=== PATIENT | female | born 1965 | race African-American/Black ===

== ENCOUNTER 2020-10-13 15:51 | Emergency (ER) | payer MEDICAID ==
[~2020-10-13] VITALS: Ht 165.1 cm; Wt 86.2 kg
[2020-10-13 16:20] VITALS: BP 177/108
== END 2020-10-13 18:30 | disposition home or self-care (01) ==
LOC: MED 15:51
DX: R60.0 Localized edema (principal); M79.601 Pain in right arm; M79.604 Pain in right leg
CPT/HCPCS: 93971; 99285

== ENCOUNTER 2021-03-07 12:21 | Inpatient (IN) | payer MEDICAID, SELFPAY ==
[~2021-03-07] VITALS: Ht 152.4 cm; Wt 70.3 kg
[2021-03-07 13:17] VITALS: BP 112/68
--- NOTE | 2021-03-07 13:46 | NUR ---
[place] yanes in [facility] - 03/07/21 at 1453 by [email or web address] PT MOVED FROM AMBULANCE 1 TO BED 11
--- NOTE | 2021-03-07 14:52 | NUR ---
1452 BIBA TO ER BED 3
--- NOTE | 2021-03-07 15:35 | NUR ---
NEON SIGN INSTALLER AT PT BEDSIDE.
[2021-03-07] MEDS ORDERED: NACL 0.9% 1,000 ML IV SCH (16:00)
[2021-03-07] MEDS ORDERED: cefTRIAXone 1,000 MG in DEXT 5% MINI-BAG PLUS 50 ML IV ONE (16:00)
[2021-03-07 17:00] LABS: BASOPHILS # (AUTO) 0.1 K/uL (0.00-0.22); BASOPHILS % (AUTO) 1.7 % (0.0-2.0); EOSINOPHILS # (AUTO) 0.3 K/uL (0-0.4); EOSINOPHILS % (AUTO) 3.2 % (0.0-4.0); HEMATOCRIT 40.4 % (36-48); HEMOGLOBIN 13.8 g/dL (12.0-16.0); LYMPHOCYTES # (AUTO) 1.1 K/uL (2.5-16.5); LYMPHOCYTES % (AUTO) 14.3 % (20.5-51.1); MEAN CORPUSCULAR HEMOGLOBIN 32 pg (27-31); MEAN CORPUSCULAR HGB CONC 34 g/dL (33-37); MEAN CORPUSCULAR VOLUME 91.9 fL (80-94); MONOCYTES # (AUTO) 0.4 K/uL (0.8-1.0); MONOCYTES % (AUTO) 4.9 % (1.7-9.3); NEUTROPHILS % (AUTO) 75.9 % (42.2-75.2); PLATELET COUNT (AUTO) 254 K/uL (140-450); RED CELL DISTRIBUTION WIDTH 14.6 % (11.6-13.7); WHITE BLOOD COUNT (AUTO) 7.9 K/uL (4.8-10.8)
[2021-03-07] MEDS ORDERED: cefTRIAXone 1,000 MG VIAL ONE (17:02)
--- NOTE | 2021-03-07 17:14 | NUR ---
COLLECTED YURY SCHWARZ, GAVE TO VICE PRESIDENT MEDICAL AFFAIRS AT PT BEDSIDE.
[2021-03-07 17:15] LABS: BILIRUBIN,URINE 1+ (NEGATIVE); BLOOD, URINE 2+ (NEGATIVE); COLOR,URINE YELLOW (YELLOW); LEUKOCYTE ESTERASE ,URINE 3+ (NEGATIVE); NITRITE, URINE NEGATIVE (NEGATIVE); PH,URINE 6.5 (5.0-9.0); UGLUCOSE NEGATIVE (NEGATIVE)
[2021-03-07 17:17] LABS: APPEARANCE,URINE CLOUDY (CLEAR)
[2021-03-07 17:18] LABS: RBC,URINE 0-5 /HPF (0-5); WBC,URINE TOO MANY TO COUNT /HPF (0-5)
[2021-03-07 17:25] LABS: ANION GAP 16.6 (8-16); CARBON DIOXIDE 25.2 mmol/L (21-32); CREATININE 0.7 mg/dL (0.6-1.3); POTASSIUM 3.8 mmol/L (3.5-5.1); TOTAL BILIRUBIN 0.6 mg/dL (0.0-1.0)
--- NOTE | 2021-03-07 18:55 | NUR ---
PT RESTING IN BED, HOB ELEVATED, VSS, WILL CONTINUE TO MONITOR.
[2021-03-07] MEDS ORDERED: LEVE750T25 PO (19:10)
[2021-03-07] MEDS ORDERED: [UNRECOGNIZED DRUG - CODE] TP (19:10)
[2021-03-07] MEDS ORDERED: LAM200 PO (19:10)
[2021-03-07] MEDS ORDERED: ZINC50TA76 PO (19:10)
[2021-03-07] MEDS ORDERED: FAMO-92 PO (19:10)
[2021-03-07] MEDS ORDERED: TYL650S RC (19:10)
[2021-03-07] MEDS ORDERED: MULT-2112 PO (19:10)
[2021-03-07] MEDS ORDERED: ASCO500T95 PO (19:10)
[2021-03-07] MEDS ORDERED: DOCU150L25 PO (19:10)
[2021-03-07] MEDS ORDERED: MIRABULK PO (19:10)
[2021-03-07] MEDS ORDERED: CALC-1646 PO (19:10)
[2021-03-07] MEDS ORDERED: LACO200T PO (19:10)
[2021-03-07] MEDS ORDERED: EPIN1KIT31 IM (19:10)
--- NOTE | 2021-03-07 19:26 | NUR ---
received report from Karol ACOSTA for continuation of care.
--- NOTE | 2021-03-07 19:26 | NUR ---
GAVE REPORT TO KARLA DUONG. TRANSFER OF CARE AT THIS TIME.
--- NOTE | 2021-03-07 20:05 | NUR ---
Angelique ACOSTA from the boarding facility calling for updates and condition of patient.
--- NOTE | 2021-03-07 23:21 | NUR ---
pericare provided for patient, placed diaper and chucks, and repositioned patient to the right side- tolerated well. emptied out levy with 1000ml taken out-- cloudy, foul odor, ree in color.
--- NOTE | 2021-03-08 02:39 | NUR ---
repositioned patient to the left side- tolerated well.
--- NOTE | 2021-03-08 06:36 | NUR ---
repositioned patient to supine- tolerated well.
--- NOTE | 2021-03-08 07:32 | NUR ---
Patient appears to be resting comfortably in bed. Vital Signs within normal limits. Respirations even and unlabored. All needs met and anticipated. Call light in reach, all safety measures in place.
--- NOTE | 2021-03-08 08:31 | NUR ---
Patient will be admitted to care of Dr Mohamud . Admited to [facility]. Will go to room 105A. Belongings list completed. Report to KARLA Carrizales.
--- NOTE | 2021-03-08 09:00 | NUR ---
PATIENT ARRIVED ON UNIT , PT CHANGED BED BATH GIVEN ONE LARGE BM AT THIS TIME , PT ORIENTED TO ROOM , HOSPITAL POLICES , REENFORCEMENT NEEDED.
[2021-03-08 12:00] VITALS: BP 108/67
--- NOTE | 2021-03-08 12:04 | NUR ---
PATIENT CHANGED AND REPOSITIONED ONE LARGE BM AT THIS TIME , BED IN LOW POSITION , CALL LIGHT WITHIN REACH , ALLS SAFETY MEASURES ARE IN PLACE.E
--- NOTE | 2021-03-08 16:25 | NUR ---
PT PROVIDED SNACK PT TOLERATED WELL. ALL SAFETY MEASURES ARE IN PLACE.
--- NOTE | 2021-03-08 16:28 | NUR ---
PATIENT HAS BEEN SCREENED AND CATEGORIZED MODERATE NUTRITION RISK. PATIENT WILL BE SEEN WITHIN 3-5 DA[address] OF ADMISSION. JAN[address]
--- NOTE | 2021-03-08 16:48 | NUR ---
DC PLANN[age] YRS OLD FEMALE PATIENT WAS ADMITTED FROM [facility] WITH A DX OF UTI AND PNA. PATIENT HAS A HX OF PID, SZ, CEREBRAL PALSY AND OSTEOPOROSIS. XRAY ABD SERIES SHOWED PNEUMONIA ON RA SATING 98%. UA 4+. ADMINISTERED IVF, IV ABX ROCEPHIN. CONSULTED WITH ID. DC PLAN TO GO HOME WHEN STABLE CM TO FOLLOW Addendum: 03/11/21 at 1118 by Catherine Verduzco RN DC PLANNING: PATIENT HAS A DC ORDER, CALLED [facility] SPOKE WITH JAKE ALEJANDRE TRANSPORT PROGRAMMER BUSINESS TIME WILL BE BETWEEN 3-3:30 PM NOTIFIED FARIDEH ACOSTA. CM TO FOLLOW
--- NOTE | 2021-03-08 19:21 | NUR ---
PATIENT ENDORSED TO PATIENT SERVICES TECHNICIAN NURSE FOR CONTINUITY OF CARE, PT RESTING IN BED , NO ACUTE DISTRESS NOTED , BREATHING IS SYMMETRICAL AND UNLABORED. PATIENT REPOSITIONED AND KEPT DRY THROUGH OUT THE SHIFT.
--- NOTE | 2021-03-08 19:23 | NUR ---
[id number] REPORT FROM AM SHIFT NURSE FOR CONTINUITY OF CARE. RR EVEN AND UNLABORED WITH EQUAL CHEST RISE. PT AWAKE , BUT APHASIC. NO ACUTE DISTRESS NOTED. ALL SAFETY MEASURES IN PLACE.
[2021-03-08 20:00] VITALS: BP 187/108
--- NOTE | 2021-03-08 21:30 | NUR ---
FREQ ROUNDS. PT TURNED AND REPOSITIONED Q2HRS. SACRUM REDDENED BUT SKIN INTACT. HANDS CONTRACTED. HAS CEREBRAL PALSY. ALL SAFETY MEASURES IN PLACE. WILL CONTINUE TO MONITOR.
--- NOTE | 2021-03-08 22:45 | NUR ---
SPOKE WITH DR. MEDEIROS INFECTIOUS DISEASES. KIANNA'S ORDERED AND CARRIED OUT.
[2021-03-08] MEDS ORDERED: PIPERACILLIN/TAZOBACTAM 4.5 GM VIAL IV ONE (23:36)
--- NOTE | 2021-03-09 | NUR ---
ZOSYN IVPB HUNG INFUDED INTO L FOOT IV 22G. PT TOLERATED PROCEDURE WELL. DID NOT TRY TO DISLODGE IVF. MOUTH CARE GIVEN. TURNED PT Q2HRS. ALL SAFETY MEASURES IN PLACE. CONTINUE TO OBSERVE.
--- NOTE | 2021-03-09 03:21 | NUR ---
FREQ ROUNDS. PT RESTING IN BED. RR EVEN AND UNLABORED WITH EQUAL CHEST RISE. ALL SAFETY MEASURES IN PLACE.
[2021-03-09 04:00] VITALS: BP 146/75
[2021-03-09] MEDS ORDERED: PIPERACILLIN/TAZOBACTAM 4.5 GM VIAL IV ONE (05:50)
--- NOTE | 2021-03-09 06:30 | NUR ---
UNABLE TO GET ZOSYN 4.5 GM IVPB TO HANG. AT 07:28 RECEIVED ZOSYN 4.5GM TO RECONSTITUTE IN DEXTROSE 5% IVPB. HUNG ABX. PT TOLERATED IT WELL; WITH OUT TRYING TO DISLODGE THE IV.
[2021-03-09] MEDS: PIPERACILLIN/TAZOBACTAM 4.5 GM in DEXTROSE 5% 100 ML IV SCH ×6 (07:00→23:47)
--- NOTE | 2021-03-09 07:30 | NUR ---
RECEIVED REPORT FROM YEAST CAKE CUTTER NURSE FOR CONTINUITY OF CARE, POC DISCUSSED. PT IS IN BED AT 45%, APHASIC, ON ROOM AIR WITH CHEST RISING AND FALLING EVEN AND UNLABORED. PT HAS A LEFT FOREARM 22G. PT HAS A HENAO IN PLACE. ALL SAFETY MEASURES IN PLACE, WILL CONTINUE TO MONITOR.
[2021-03-09 08:00] VITALS: BP 137/90
[2021-03-09] MEDS ORDERED: HYDROcodone/APAP 5/325 MG 1 TAB TAB PO PRN (09:05)
[2021-03-09] MEDS ORDERED: ONDANSETRON 4 MG/2 ML VIAL IVP PRN (09:05)
[2021-03-09] MEDS ORDERED: LORazepam 2 MG/ML VIAL IVP PRN (09:05)
[2021-03-09] MEDS ORDERED: ACETAMINOPHEN 325 MG TAB PO PRN (09:05)
--- NOTE | 2021-03-09 10:00 | NUR ---
MORNING ASSESSMENT COMPLETED ON PT, PT IS STABLE. ALL SAFETY MEASURES IN PLACE, CALL LIGHT WITHIN REACH. WILL CONTINUE TO MONITOR.
--- NOTE | 2021-03-09 11:05 | NUR ---
URINE CULTURE OBTAINED.
--- NOTE | 2021-03-09 13:24 | NUR ---
SAMANTHA MEDICATION ADMINISTERED PER MD ORDER, PT TOLERATED ADMINISTRATION. PT IV IS PATENT AND INTACT.
[2021-03-09 15:34] LABS: BASOPHILS # (AUTO) 0.1 K/uL (0.00-0.22); BASOPHILS % (AUTO) 1.6 % (0.0-2.0); EOSINOPHILS # (AUTO) 0.2 K/uL (0-0.4); HEMATOCRIT 40.5 % (36-48); HEMOGLOBIN 13.8 g/dL (12.0-16.0); LYMPHOCYTES # (AUTO) 1.1 K/uL (2.5-16.5); LYMPHOCYTES % (AUTO) 28.6 % (20.5-51.1); MEAN CORPUSCULAR HEMOGLOBIN 31 pg (27-31); MEAN CORPUSCULAR HGB CONC 34 g/dL (33-37); MEAN CORPUSCULAR VOLUME 91.7 fL (80-94); MONOCYTES # (AUTO) 0.6 K/uL (0.8-1.0); MONOCYTES % (AUTO) 15.7 % (1.7-9.3); NEUTROPHILS # (AUTO) 1.8 K/uL (1.8-7.7); NEUTROPHILS % (AUTO) 49.1 % (42.2-75.2); PLATELET COUNT (AUTO) 332 K/uL (140-450); RED BLOOD CELL COUNT(AUTO) 4.42 MIL/uL (4.20-5.40); RED CELL DISTRIBUTION WIDTH 14.7 % (11.6-13.7); WHITE BLOOD COUNT (AUTO) 3.7 K/uL (4.8-10.8)
--- NOTE | 2021-03-09 15:57 | NUR ---
PT IS STABLE IN BED WITH NO ACUTE S/S OF DISTRESS. ALL SAFETY MEASURES IN PLACE, CALL LIGHT WITHIN REACH. WILL CONTINUE TO MONITOR.
[2021-03-09 16:06] LABS: ANION GAP 11.3 (8-16); CARBON DIOXIDE 31.4 mmol/L (21-32); CREATININE 0.6 mg/dL (0.6-1.3); POTASSIUM 3.7 mmol/L (3.5-5.1)
--- NOTE | 2021-03-09 17:51 | NUR ---
SAMANTHA MEDICATION ADMINISTERED PER MD ORDER, PT TOLERATED ADMINISTRATION. IV PATENT. ALL SAFETY MEASURES IN PLACE, CALL LIGHT WITHIN REACH. WILL CONTINUE TO MONITOR.
--- NOTE | 2021-03-09 18:25 | NUR ---
ALL NEEDS HAVE BEEN MET THROUGHOUT THE SHIFT, PT REMAINED STABLE. CONTINUITY OF CARE WILL BE ENDORSED TO MATHEMATICIAN NURSE.
--- NOTE | 2021-03-09 19:30 | NUR ---
RECEIVED BEDSIDE REPORT.PT'S CONDITION IS STABLE.RESP.UNLABORED.SL PATENT.NO ANY DISTRESS NOTED NOW.CALL LIGHT IN REACH.PT IS APHASIC.WILL CONTINUE MONITORING.
[2021-03-09 20:00] VITALS: BP 142/80
[2021-03-09] MEDS ORDERED: ASCORBIC ACID 500 MG TAB PO SCH (21:00)
[2021-03-09] MEDS: DOCUSATE 100 MG/10 ML UDC PO SCH (21:09)
[2021-03-09] MEDS: levETIRAcetam 500 MG TAB PO SCH (21:09)
[2021-03-09] MEDS: ASCORBIC ACID 500 MG TAB PO SCH (21:10)
[2021-03-09] MEDS: CALCIUM CARB/VIT-D 500 MG/200 IU 1 TAB PO SCH (21:10)
--- NOTE | 2021-03-10 03:30 | NUR ---
SLEEPING.NO DISTRESS NOTED NOW.WILL CONT.MONITORING.
[2021-03-10 04:00] VITALS: BP 158/85
[2021-03-10] MEDS: PIPERACILLIN/TAZOBACTAM 4.5 GM in DEXTROSE 5% 100 ML IV SCH ×4 (06:00→23:13)
--- NOTE | 2021-03-10 06:48 | NUR ---
PT IS NON VERBAL.NO S/S OF ANY DISTRESS NOTED AT THIS TIME.
--- NOTE | 2021-03-10 07:27 | NUR ---
HANDOFF REPORT RECEIVED FROM PM SHIFT RN FOR CONTINUITY OF CARE. PT. LYING IN THE BED. WITH NO DISTRESS NOTED. ALL SAFETY MEASURES IN PLACED. WILL CONTINUE TO MONITOR THE PT.
--- NOTE | 2021-03-10 07:34 | NUR ---
REPORT GIVEN TO BENJAMÍN RN PT IS IN STABLE CONDITION.
[2021-03-10 07:59] LABS: ALBUMIN 2.6 g/dL (3.4-5.0); ANION GAP 12.2 (8-16); CARBON DIOXIDE 28.4 mmol/L (21-32); CREATININE 0.6 mg/dL (0.6-1.3); POTASSIUM 3.6 mmol/L (3.5-5.1); TOTAL BILIRUBIN 0.4 mg/dL (0.0-1.0)
[2021-03-10 08:00] VITALS: BP 159/86
[2021-03-10 08:06] LABS: BASOPHILS % (AUTO) 1.1 % (0.0-2.0); EOSINOPHILS # (AUTO) 0.2 K/uL (0-0.4); EOSINOPHILS % (AUTO) 3.9 % (0.0-4.0); HEMATOCRIT 38.6 % (36-48); HEMOGLOBIN 13.1 g/dL (12.0-16.0); LYMPHOCYTES # (AUTO) 1.4 K/uL (2.5-16.5); LYMPHOCYTES % (AUTO) 29.7 % (20.5-51.1); MEAN CORPUSCULAR HEMOGLOBIN 31 pg (27-31); MEAN CORPUSCULAR HGB CONC 34 g/dL (33-37); MEAN CORPUSCULAR VOLUME 91.8 fL (80-94); MONOCYTES # (AUTO) 0.5 K/uL (0.8-1.0); MONOCYTES % (AUTO) 9.9 % (1.7-9.3); NEUTROPHILS # (AUTO) 2.5 K/uL (1.8-7.7); NEUTROPHILS % (AUTO) 55.4 % (42.2-75.2); PLATELET COUNT (AUTO) 329 K/uL (140-450); RED CELL DISTRIBUTION WIDTH 14.6 % (11.6-13.7); WHITE BLOOD COUNT (AUTO) 4.6 K/uL (4.8-10.8)
--- NOTE | 2021-03-10 08:20 | NUR ---
PT. WITH LOW LALITO SCALE AT HIGH RISK, CONTINUE TO FOLLOW PRESSURE INJURY PREVENTION INTERVENTIONS. -TURN AND REPOSITION PATIENT Q 2H -ASSESS AND MONITOR SKIN CONDITION DURING POSITION CHANGE -OFFLOAD BILATERAL HEELS BY PLACING PILLOWS UNDER CALVES AT ALL TIMES, UNLESS OTHERWISE CONTRAINDICATED -PRESSURE REDISTRIBUTION SURFACE AND OFFLOADING SACRALCOCCYX -KEEP SKIN CLEAN AND DRY AT ALL TIMES. PLEASE NOTIFIED WOUND CARE NURSE FOR ANY CHANGE OF SKIN CONDITION
[2021-03-10] MEDS ORDERED: NON-FORMULARY ITEM (Multivitamin (Multi-Vitamins) 1 TAB) PO SCH (09:00)
[2021-03-10] MEDS: DOCUSATE 100 MG/10 ML UDC PO SCH ×2 (09:50→22:26)
[2021-03-10] MEDS: ASCORBIC ACID 500 MG TAB PO SCH ×2 (09:50→22:34)
[2021-03-10] MEDS: CALCIUM CARB/VIT-D 500 MG/200 IU 1 TAB PO SCH ×2 (09:50→22:34)
[2021-03-10] MEDS: MULTIVITAMIN 1 TAB PO SCH (09:51)
[2021-03-10] MEDS: FAMOTIDINE 20 MG TAB PO SCH (09:51)
[2021-03-10] MEDS: ZINC SULF 220 MG CAP PO SCH (09:51)
[2021-03-10] MEDS: levETIRAcetam 500 MG TAB PO SCH ×2 (09:53→22:26)
[2021-03-10] MEDS: POLYETHYLENE GLYCOL 17 GM/PKT PO SCH (09:54)
--- NOTE | 2021-03-10 10:00 | NUR ---
PT. STABLE ON ROOM AIR. NO S/S OF DISTRESS NOTED. ADMINISTERED MEDICATION SCHEDULED. ALL SAFETY MEASURES IN PLACED. WILL CONTINUE TO MONITOR THE PT.
--- NOTE | 2021-03-10 12:30 | NUR ---
MADE ROUND TO THE PT'S ROOM. PT. COMFORTABLY LYING IN THE BED. BREATHINGS EVEN AND UNLABORED. ALL SAFETY MEASURES IN PLACED.. WILL CONTINUE TO MONITOR THE PT.
--- NOTE | 2021-03-10 14:24 | NUR ---
PT. STABLE ON ROOM AIR. SAFETY MEASURES I PLACED. WILL CONTINUE TO MONITOR THE PT.
[2021-03-10 16:00] VITALS: BP 150/90
--- NOTE | 2021-03-10 17:00 | NUR ---
pt. comfortably sleeping in the bed. stable on room air . all safety measeres in placed. will continue to monitor the pt.
--- NOTE | 2021-03-10 19:18 | NUR ---
HANDOFF REPORT GIVEN TO PM SHIFT RN FOR CONTINUITY OF CARE. PT. STABLE.
--- NOTE | 2021-03-10 19:20 | NUR ---
RECEIVED REPORT FROM AM SHIFT NURSE FOR CONTINUITY OF CARE. PT LAYING IN BED L FOOT IV 22G PATENT INFUSING NS @TKO. ALL SAFETY MEASURES IN PLACE.
[2021-03-10 20:00] VITALS: BP 125/77
[2021-03-11 04:00] VITALS: BP 123/76
[2021-03-11] MEDS: PIPERACILLIN/TAZOBACTAM 4.5 GM in DEXTROSE 5% 100 ML IV SCH ×2 (04:00→12:00)
[2021-03-11 07:27] LABS: BASOPHILS # (AUTO) 0.1 K/uL (0.00-0.22); BASOPHILS % (AUTO) 2.1 % (0.0-2.0); EOSINOPHILS # (AUTO) 0.3 K/uL (0-0.4); EOSINOPHILS % (AUTO) 5.9 % (0.0-4.0); HEMATOCRIT 37.7 % (36-48); LYMPHOCYTES # (AUTO) 1.6 K/uL (2.5-16.5); LYMPHOCYTES % (AUTO) 38.2 % (20.5-51.1); MEAN CORPUSCULAR HEMOGLOBIN 31 pg (27-31); MEAN CORPUSCULAR HGB CONC 34 g/dL (33-37); MEAN CORPUSCULAR VOLUME 91.3 fL (80-94); MONOCYTES # (AUTO) 0.5 K/uL (0.8-1.0); MONOCYTES % (AUTO) 11.6 % (1.7-9.3); NEUTROPHILS # (AUTO) 1.8 K/uL (1.8-7.7); NEUTROPHILS % (AUTO) 42.2 % (42.2-75.2); PLATELET COUNT (AUTO) 372 K/uL (140-450); RED BLOOD CELL COUNT(AUTO) 4.13 MIL/uL (4.20-5.40); RED CELL DISTRIBUTION WIDTH 14.7 % (11.6-13.7); WHITE BLOOD COUNT (AUTO) 4.3 K/uL (4.8-10.8)
[2021-03-11] MEDS: levETIRAcetam 500 MG TAB PO SCH (09:00)
[2021-03-11] MEDS: POLYETHYLENE GLYCOL 17 GM/PKT PO SCH (09:00)
[2021-03-11] MEDS: FAMOTIDINE 20 MG TAB PO SCH (09:00)
[2021-03-11] MEDS: CALCIUM CARB/VIT-D 500 MG/200 IU 1 TAB PO SCH (09:00)
[2021-03-11] MEDS: ZINC SULF 220 MG CAP PO SCH (09:00)
[2021-03-11] MEDS: ASCORBIC ACID 500 MG TAB PO SCH (09:00)
[2021-03-11] MEDS: DOCUSATE 100 MG/10 ML UDC PO SCH (09:00)
[2021-03-11] MEDS: MULTIVITAMIN 1 TAB PO SCH (09:00)
[2021-03-11] MEDS ORDERED: LEVO-315 PO (09:38)
[2021-03-11 10:52] LABS: ANION GAP 14.5 (8-16); CARBON DIOXIDE 26.8 mmol/L (21-32); CREATININE 0.6 mg/dL (0.6-1.3)
[2021-03-11 10:53] LABS: POTASSIUM 4.3 mmol/L (3.5-5.1)
== END 2021-03-11 16:00 | disposition home or self-care (01) | DRG 720 ==
LOC: MED 12:21 → MMU 20:40 → MTU 03-08 04:11
PROVIDERS: ADMIT Internal Medicine Cardiovascular Disease; ATTEND Internal Medicine Cardiovascular Disease
DX: A41.9 Sepsis, unspecified organism (principal); J18.9 Pneumonia, unspecified organism; E87.1 Hypo-osmolality and hyponatremia; E88.09 Other disorders of plasma-protein metabolism, not elsewhere classified; S06.9X0A Unspecified intracranial injury without loss of consciousness, initial encounter; N39.0 Urinary tract infection, site not specified; E78.5 Hyperlipidemia, unspecified; E83.52 Hypercalcemia; G40.909 Epilepsy, unspecified, not intractable, without status epilepticus; F79 Unspecified intellectual disabilities; R73.9 Hyperglycemia, unspecified; Z20.822 Contact with and (suspected) exposure to COVID-19; X58.XXXA Exposure to other specified factors, initial encounter; B96.1 Klebsiella pneumoniae [K. pneumoniae] as the cause of diseases classified elsewhere; Z79.1 Long term (current) use of non-steroidal anti-inflammatories (NSAID); Z79.899 Other long term (current) drug therapy; I25.2 Old myocardial infarction; Z87.820 Personal history of traumatic brain injury; Y93.89 Activity, other specified; Y92.89 Other specified places as the place of occurrence of the external cause; Y99.8 Other external cause status
CPT/HCPCS: 36415; 71045; 74022; 80048; 80053; 80173; 81001; 83605; 83690; 83880; 84484; 85025; 85651; 86140; 87040; 87081; 87086; 93005; 96365; 99285; J0696; J2543; J7060; Q0092

== ENCOUNTER 2022-08-04 10:19 | Inpatient (IN) | payer MEDICAID ==
[~2022-08-04] VITALS: Ht 147.3 cm; Wt 65.3 kg
[~2022-08-04 10:19] MED LIST: ASCO500T95 PO; CALC-1646 PO; DOCU150L25 PO; EPIN1KIT31 IM; FAMO-92 PO; LACO200T PO; LAM200 PO; LEVE750T25 PO; LEVO-481 PO; MIRABULK PO; MULT-2112 PO; TYL650S RC; ZINC50TA76 PO; [UNRECOGNIZED DRUG - CODE] TP
[2022-08-04 10:25] VITALS: BP 134/78
--- NOTE | 2022-08-04 10:27 | NUR ---
PATIENT BIBA TO BED 5.
--- NOTE | 2022-08-04 10:46 | NUR ---
X-Ray at bedside.
[2022-08-04 11:10] LABS: APPEARANCE,URINE CLEAR (CLEAR); BILIRUBIN,URINE NEGATIVE (NEGATIVE); BLOOD, URINE NEGATIVE (NEGATIVE); COLOR,URINE YELLOW (YELLOW); LEUKOCYTE ESTERASE ,URINE NEGATIVE (NEGATIVE); NITRITE, URINE NEGATIVE (NEGATIVE); UGLUCOSE NEGATIVE (NEGATIVE)
[2022-08-04 11:37] LABS: BASOPHILS % (AUTO) 1.2 % (0.0-2.0); EOSINOPHILS # (AUTO) 0.2 K/uL (0-0.4); EOSINOPHILS % (AUTO) 6.6 % (0.0-4.0); HEMATOCRIT 33.7 % (36-48); HEMOGLOBIN 11.5 g/dL (12.0-16.0); LYMPHOCYTES # (AUTO) 1.1 K/uL (2.5-16.5); LYMPHOCYTES % (AUTO) 34.4 % (20.5-51.1); MEAN CORPUSCULAR HEMOGLOBIN 32 pg (27-31); MEAN CORPUSCULAR HGB CONC 34 g/dL (33-37); MONOCYTES # (AUTO) 0.3 K/uL (0.8-1.0); MONOCYTES % (AUTO) 9.2 % (1.7-9.3); NEUTROPHILS # (AUTO) 1.5 K/uL (1.8-7.7); NEUTROPHILS % (AUTO) 48.6 % (42.2-75.2); PLATELET COUNT (AUTO) 396 K/uL (140-450); RED BLOOD CELL COUNT(AUTO) 3.62 MIL/uL (4.20-5.40); RED CELL DISTRIBUTION WIDTH 14.6 % (11.6-13.7); WHITE BLOOD COUNT (AUTO) 3.1 K/uL (4.8-10.8)
[2022-08-04 11:58] LABS: ALBUMIN 3.3 g/dL (3.4-5.0); ANION GAP 12.6 (8-16); CARBON DIOXIDE 27.5 mmol/L (21-32); CREATININE 0.6 mg/dL (0.6-1.3); POTASSIUM 4.1 mmol/L (3.5-5.1); TOTAL BILIRUBIN 0.2 mg/dL (0.0-1.0)
[2022-08-04 12:09] LABS: PROTHROMBIN TIME 10.9 secs (10.8-13.4)
[2022-08-04] MEDS ORDERED: LORazepam 2 MG/ML VIAL IVP ONE (12:35)
[2022-08-04] MEDS ORDERED: NACL 0.9% 1,000 ML IV ONE (12:35)
[2022-08-04] MEDS ORDERED: cefTRIAXone 1,000 MG in LIDOCAINE MPF 1% 2.1 ML IM ONE (12:35)
[2022-08-04] MEDS ORDERED: DEXT 5% / NACL 0.45% 1,000 ML IV ONE (13:20)
[2022-08-04] MEDS ORDERED: levETIRAcetam 1,000 MG in NACL 0.9% 100 ML IV ONE (13:25)
--- NOTE | 2022-08-04 14:42 | NUR ---
PATIENT HAS BEEN SCREENED AND CATEGORIZED LOW NUTRITION RISK. PATIENT WILL BE SEEN WITHIN 7 DAYS OF ADMISSION. 08/11/[address]
[2022-08-04 16:15] VITALS: BP 132/59
--- NOTE | 2022-08-04 16:30 | NUR ---
RECEIVED REPORT FROM ER NURSE FOR CONTINUITY OF CARE. PT WAS STABLE UPON TRANSPORT WITH NO SIGNS OF DISTRESS. PT IS APHASIC AT BASELINE, ON ROOM AIR, IS BEDBOUND, AND IS CONTRACTED IN HER UPPER EXTREMITIES. PT HAS A 22G IV IN HER L HAND THAT IS PATENT AND INTACT. PT IS INCONTINENT OF BOWEL AND BLADDER AND HER SKIN IS INTACT. ALL SAFETY MEASURES IN PLACE INCLUDING BED IN LOW POSITION. MONITORING CONTINUED.
--- NOTE | 2022-08-04 19:38 | NUR ---
ENDORSED PT TO CHAIN BUILDER NURSE FOR CONTINUITY OF CARE. PT STABLE.
[2022-08-04 20:00] VITALS: BP 113/63
--- NOTE | 2022-08-04 20:00 | NUR ---
PT IS AWAKE ON BED/BED BOUND, UNABLE TO RESPONSE ON STIMULI. IV SITE IS ON LEFT HAND 22G INFUSING WELL WITH D5NS AT 100ML. PT IS NPO AT THIS TIME. PT IS NON VERBAL. PT IS INCONTINENT.
--- NOTE | 2022-08-04 23:00 | NUR ---
PT IS ASLEEP, NO SOB OR DISTRESS. NO FACIAL GRIMACING.
--- NOTE | 2022-08-05 02:00 | NUR ---
PT IS SLEEPING. NO SOB OR DISTRESS.
[2022-08-05 04:00] VITALS: BP 123/55
--- NOTE | 2022-08-05 05:00 | NUR ---
PERSONAL HYGIENE RENDERED, PT COOPERATIVE. PT IS AWAKE AND STABLE.
[2022-08-05 08:00] VITALS: BP 93/42
--- NOTE | 2022-08-05 09:08 | NUR ---
DUE TO CHANGE IN LALITO SCORE PATIENT HAS BEEN RESCREENED AND CATEGORIZED MODERATE NUTRITION RISK. PATIENT WILL BE SEEN WITHIN 3-5 DAYS FROM ADMISSION. 08/07/22-08/09/[address]
--- NOTE | 2022-08-05 09:25 | NUR ---
PT. WITH LOW LALITO SCALE AT HIGH RISK, CONTINUE TO FOLLOW PRESSURE INJURY PREVENTION INTERVENTIONS. -POSITIONING: TURN AND REPOSITION PATIENT Q 2H OR SOONER USE PILLOWS TO KEEP BONY PROMINENCES FROM DIRECT CONTACT WITH SURFACES USE REPOSITIONING WEDGES TO PROVIDE 30-DEGREE ANGLE FOR SIDE LYING POSITIONS OFFLOADING OR FOAM DRESSING TO ALL TUBING TO PREVENT MEDICAL DEVICES RELATED PRESSURE INJURY -RE-EVALUATING AND MANAGING INCONTINENCE MONITOR SKIN CONDITION DURING POSITION CHANGE DO NOT MASSAGE REDNESS, BONY PROMINENCES FREQUENT JOE-CARE AND PROVIDE BARRIER CREAMS PRN IF SOILING MOISTURE CONTROL BY OFFER BED SANDOVAL/URINAL /ABSORBENT PAD TO WICK AND HOLD MOISTURE KEEP SKIN DRY AND PROTECT FROM FRICTION -MANAGE FRICTION/SHEAR/MOBILITY KEEP HOB AT THE LOWEST LEVEL OF ELEVATION NO MORE THAN 30 DEGREE UNLESS OTHERWISE CONTRAINDICATED USE LIFT SHEET OR TRANSFER DEVICE TO MOVE PATIENT AND PREVENT LATERAL SHEER. PROTECT HEELS, ELBOWS BONY PROMINENCES WITH SKIN BERRIES OR FOAM DRESSING IF EXPOSED TO FRICTION OFFLOAD BILATERAL HEELS BY PLACING PILLOWS UNDER CALVES AT ALL TIMES, UNLESS OTHERWISE CONTRAINDICATED -PRESSURE REDISTRIBUTION SURFACE THERAPY TED ISOFLEX MATTRESS -NUTRITION: PLEASE FOLLOW RD RECOMMENDATIONS AND OFFER NUTRITION SUPPLEMENTS IF ORDERED. PLEASE CONTACT WOUND CARE NURSE FOR ANY QUESTION AND CHANGE OF WOUND CONDITION.
[2022-08-05] MEDS ORDERED: EPINEPHRINE 0.3 MG IM SCH (09:40)
[2022-08-05] MEDS ORDERED: ONDANSETRON 4 MG/2 ML VIAL IVP PRN (09:40)
[2022-08-05] MEDS ORDERED: ACETAMINOPHEN 650 MG SUPP RC PRN ×2 (09:40)
[2022-08-05] MEDS ORDERED: LORazepam 2 MG/ML VIAL IVP PRN (09:40)
[2022-08-05 10:18] LABS: BASOPHILS % (AUTO) 1.4 % (0.0-2.0); EOSINOPHILS # (AUTO) 0.2 K/uL (0-0.4); EOSINOPHILS % (AUTO) 6.1 % (0.0-4.0); HEMATOCRIT 30.2 % (36-48); HEMOGLOBIN 10.2 g/dL (12.0-16.0); LYMPHOCYTES # (AUTO) 1.2 K/uL (2.5-16.5); LYMPHOCYTES % (AUTO) 44.5 % (20.5-51.1); MEAN CORPUSCULAR HEMOGLOBIN 32 pg (27-31); MEAN CORPUSCULAR HGB CONC 34 g/dL (33-37); MEAN CORPUSCULAR VOLUME 93.6 fL (80-94); MONOCYTES # (AUTO) 0.3 K/uL (0.8-1.0); MONOCYTES % (AUTO) 9.6 % (1.7-9.3); NEUTROPHILS % (AUTO) 38.4 % (42.2-75.2); PLATELET COUNT (AUTO) 335 K/uL (140-450); RED BLOOD CELL COUNT(AUTO) 3.23 MIL/uL (4.20-5.40); RED CELL DISTRIBUTION WIDTH 14.9 % (11.6-13.7); WHITE BLOOD COUNT (AUTO) 2.7 K/uL (4.8-10.8)
[2022-08-05 10:33] LABS: ANION GAP 9.5 (8-16); CARBON DIOXIDE 28.3 mmol/L (21-32); CREATININE 0.5 mg/dL (0.6-1.3); POTASSIUM 4.8 mmol/L (3.5-5.1)
--- NOTE | 2022-08-05 11:01 | NUR ---
DC PLANN[age] YRS OLD FEMALE PATIENT WAS ADMITTED FROM [facility] WITH A DX OF AMS, POSSIBLE SEIZURE. PATIENT HAS A HX OF PID, SZ, CEREBRAL PALSY AND OSTEOPOROSIS. CXR SHOWED NO ACUTE CARDIOPULMONARY FINDINGS. HEAD CT NEGATIVE. ON SATI 98%. ADMINISTERED IVF, IV ABX ROCEPHIN AND CONTINUED HOME MEDS CONSULTED WITH NEURO. DC PLAN TO RETURN TO [facility] WHEN STABLE. CM TO FOLLOW Addendum: 08/08/22 at 1504 by Catherine Verduzco RN DC PLANNING: CM CALLED [facility] SPOKE WITH HENRY THE ADMIN, PER HENRY ARRANGED TRANSPORT AND STUDENT FINANCIAL SERVICES COUNSELOR TIME 3 PM NOTIFIED TSERING HAILE RN. CM TO FOLLOW
[2022-08-05 16:00] VITALS: BP 146/72
--- NOTE | 2022-08-05 19:35 | NUR ---
RECEIVED REPORT FROM DAY SHIFT RN FOR CONTINUITY OF CARE. PT IS CURRENTLY RESTING IN BED. NOT IN ANY DISTRESS. NON-VERBAL. PT HAS IV ON LEFT HAND 24 GAUGE. SALINE LOCK. BED AT THE LOWEST POSITION. HEAD OF THE BED RAISED. BREAKS LOCKED. WILL CONTINUE TO MONITOR THE PT.
[2022-08-05 20:00] VITALS: BP 135/88
[2022-08-05] MEDS: DOCUSATE 100 MG/10 ML UDC PO SCH (21:00)
[2022-08-05] MEDS ORDERED: NON-FORMULARY ITEM (Levetiracetam* (Keppra Xr*) 750 MG) PO SCH (21:00)
[2022-08-05] MEDS: levETIRAcetam 100 MG/ML ORASYR PO SCH ×2 (21:00→21:23)
[2022-08-05] MEDS: CALCIUM CARB/VIT-D 500 MG/200 IU 1 TAB PO SCH (21:18)
[2022-08-05] MEDS: ASCORBIC ACID 500 MG TAB PO SCH (21:18)
--- NOTE | 2022-08-05 21:24 | NUR ---
PT WAS ABLE TO TAKE PO MEDS WITH APPLESAUCE. PT REFUSED TO TAKE LIQUID MEDICATION COLACE AND KEPPRA.
[2022-08-05] MEDS ORDERED: levETIRAcetam 100 MG/ML VIAL IV ONE (22:13)
[2022-08-05] MEDS: levETIRAcetam 500 MG in NACL 0.9% 100 ML IV SCH (22:24)
--- NOTE | 2022-08-06 03:47 | NUR ---
OBSERVED PT. PT IS AWAKE AND RESTING IN BED. NOT IN ANY ACUTE DISTRESS. BREATHING EVEN AND UNLABORED. BED AT THE LOWEST POSITION AND HEAD OF THE BED RAISED. WILL CONTINUE TO MONITOR THE PT.
[2022-08-06 04:00] VITALS: BP 122/62
--- NOTE | 2022-08-06 07:07 | NUR ---
ENDORSED PT TO DAY SHIFT RN FOR CONTINUITY OF CARE. PT IS STABLE.
[2022-08-06 07:08] LABS: BASOPHILS # (AUTO) 0.1 K/uL (0.00-0.22); BASOPHILS % (AUTO) 1.8 % (0.0-2.0); EOSINOPHILS # (AUTO) 0.2 K/uL (0-0.4); EOSINOPHILS % (AUTO) 5.3 % (0.0-4.0); HEMATOCRIT 28.5 % (36-48); HEMOGLOBIN 9.8 g/dL (12.0-16.0); LYMPHOCYTES # (AUTO) 1.3 K/uL (2.5-16.5); LYMPHOCYTES % (AUTO) 43.3 % (20.5-51.1); MEAN CORPUSCULAR HEMOGLOBIN 32 pg (27-31); MEAN CORPUSCULAR HGB CONC 34 g/dL (33-37); MEAN CORPUSCULAR VOLUME 92.8 fL (80-94); MONOCYTES # (AUTO) 0.3 K/uL (0.8-1.0); MONOCYTES % (AUTO) 10.7 % (1.7-9.3); NEUTROPHILS # (AUTO) 1.2 K/uL (1.8-7.7); NEUTROPHILS % (AUTO) 38.9 % (42.2-75.2); PLATELET COUNT (AUTO) 367 K/uL (140-450); RED BLOOD CELL COUNT(AUTO) 3.07 MIL/uL (4.20-5.40); RED CELL DISTRIBUTION WIDTH 14.6 % (11.6-13.7); WHITE BLOOD COUNT (AUTO) 3.1 K/uL (4.8-10.8)
[2022-08-06 07:29] LABS: ANION GAP 12.6 (8-16); CARBON DIOXIDE 25.4 mmol/L (21-32); CREATININE 0.7 mg/dL (0.6-1.3)
[2022-08-06 08:00] VITALS: BP 140/64
[2022-08-06] MEDS ORDERED: NON-FORMULARY ITEM (Famotidine* (Pepcid*) 40 MG) PO SCH (09:00)
[2022-08-06] MEDS ORDERED: ZINC 200 MG PO SCH (09:00)
[2022-08-06] MEDS ORDERED: NON-FORMULARY ITEM (Multivitamin (Multi-Vitamins) 1 TAB) PO SCH (09:00)
[2022-08-06] MEDS: levETIRAcetam 500 MG in NACL 0.9% 100 ML IV SCH ×2 (10:15→21:28)
[2022-08-06] MEDS: MULTIVITAMIN 1 TAB PO SCH (10:16)
[2022-08-06] MEDS: CALCIUM CARB/VIT-D 500 MG/200 IU 1 TAB PO SCH ×2 (10:16→21:34)
[2022-08-06] MEDS: FAMOTIDINE 20 MG TAB PO SCH (10:16)
[2022-08-06] MEDS: ASCORBIC ACID 500 MG TAB PO SCH ×2 (10:17→21:33)
[2022-08-06] MEDS: POLYETHYLENE GLYCOL 17 GM/PKT PO SCH (10:17)
[2022-08-06] MEDS: DOCUSATE 100 MG/10 ML UDC PO SCH ×2 (10:17→21:00)
[2022-08-06] MEDS: ZINC SULF 220 MG CAP PO SCH (10:17)
[2022-08-06 16:00] VITALS: BP 166/75
[2022-08-06 20:00] VITALS: BP 145/99
[2022-08-07 04:00] VITALS: BP 130/75
--- NOTE | 2022-08-07 07:06 | NUR ---
ENDORSED PT TO DAY SHIFT RN FOR CONTINUITY OF CARE. PT IS STABLE.
[2022-08-07 08:00] VITALS: BP 125/57
[2022-08-07] MEDS: POLYETHYLENE GLYCOL 17 GM/PKT PO SCH (09:00)
[2022-08-07] MEDS: levETIRAcetam 500 MG in NACL 0.9% 100 ML IV SCH ×2 (09:32→20:18)
[2022-08-07] MEDS: ZINC SULF 220 MG CAP PO SCH (09:33)
[2022-08-07] MEDS: CALCIUM CARB/VIT-D 500 MG/200 IU 1 TAB PO SCH ×2 (09:33→21:00)
[2022-08-07] MEDS: MULTIVITAMIN 1 TAB PO SCH (09:33)
[2022-08-07] MEDS: FAMOTIDINE 20 MG TAB PO SCH (09:33)
[2022-08-07] MEDS: ASCORBIC ACID 500 MG TAB PO SCH ×2 (09:33→21:00)
[2022-08-07] MEDS: DOCUSATE 100 MG/10 ML UDC PO SCH ×2 (09:34→21:00)
[2022-08-07 16:00] VITALS: BP 153/81
[2022-08-07] MEDS: DEXT 5% / NACL 0.9% 1,000 ML IV SCH (19:06)
[2022-08-07 20:00] VITALS: BP 158/76
--- NOTE | 2022-08-07 20:18 | NUR ---
KEPPRA ADMINISTERED ORDERED. ALL OTHER PO MEDICATIONS REFUSED. PATIENT IS NON VERBAL. FLACC 0. ALL SAFETY PRECAUTIONS ARE IN PLACE. CALL LIGHT IN REACH. IVF INFUSING ORDERED.
[2022-08-08 04:00] VITALS: BP 154/76
[2022-08-08] MEDS: DEXT 5% / NACL 0.9% 1,000 ML IV SCH (04:39)
--- NOTE | 2022-08-08 07:25 | NUR ---
GAVE BEDSIDE REPORT TO AM NURSE FOR CONTINUITY OF CARE.
--- NOTE | 2022-08-08 07:26 | NUR ---
RECEIVED REPORT FROM TRANSIT PLANNING MANAGER NURSE FOR CONTINUITY OF CARE. PT IS AWAKE , NO SIGN OF DISTRESS. WILL CONTINUE WITH POC.
[2022-08-08 08:00] VITALS: BP 162/82
[2022-08-08] MEDS: levETIRAcetam 500 MG in NACL 0.9% 100 ML IV SCH (09:00)
--- NOTE | 2022-08-08 09:00 | NUR ---
PT HAS NO IV, AM SHIFT TRIED 3X BUT HARDSTICK, IV MEDS NOT GIVEN.
--- NOTE | 2022-08-08 14:31 | NUR ---
08/08/22 RD INITIAL ASSESSMENT COMPLETED PLEASE REFER TO NUTRITION ASSESSMENT UNDER CARE ACTIVITY FOR ESTIMATED NUTRITIONAL NEEDS. 1.CONTINUE CARDIAC, GROUND, NO LACTOSE DIET TOLERATED. 2.RD RECOMMENDS ENSURE BID TO HELP WITH PO AND NUTRIENT INTAKE WHICH WILL PROVIDE 700KCALS AND [address] TO FOLLOW-UP 3-5 DAYS, MODERATE RISK MELISSA CONNER RD
--- NOTE | 2022-08-08 16:30 | NUR ---
PT WAS PICKED UP BY TRANSPORT OF THE FACILITY, [facility]. ID BAND REMOVED, NO IV, PT IS STABLE. GAVE THE DISCHARGE PAPERS.
[2022-08-09 17:18] LABS: LAMOTRIGINE 22.7 ug/mL (2.0-20.0)
== END 2022-08-08 16:37 | disposition home or self-care (01) | DRG 53 ==
LOC: MED 10:19 → MTU 14:01
PROVIDERS: ADMIT Preventive Medicine Preventive Medicine/Occupational Environmental Medicine; ATTEND Preventive Medicine Preventive Medicine/Occupational Environmental Medicine
DX: G40.909 Epilepsy, unspecified, not intractable, without status epilepticus (principal); E44.1 Mild protein-calorie malnutrition; G93.89 Other specified disorders of brain; D64.9 Anemia, unspecified; J45.909 Unspecified asthma, uncomplicated; K21.9 Gastro-esophageal reflux disease without esophagitis; M81.0 Age-related osteoporosis without current pathological fracture; K59.00 Constipation, unspecified; F79 Unspecified intellectual disabilities; E78.5 Hyperlipidemia, unspecified; I10 Essential (primary) hypertension; Z20.822 Contact with and (suspected) exposure to COVID-19; Z90.49 Acquired absence of other specified parts of digestive tract; Z99.3 Dependence on wheelchair; Z90.710 Acquired absence of both cervix and uterus; Z68.30 Body mass index [BMI] 30.0-30.9, adult; E87.1 Hypo-osmolality and hyponatremia
CPT/HCPCS: 36415; 70450; 71045; 80048; 80053; 80173; 80299; 81003; 82550; 83605; 83880; 84484; 85025; 85610; 85730; 87040; 87081; 87086; 93005; 96372; 96374; 96375; 99285; J0696; J1953; J2001